=== PATIENT | female | born 1970 | race Hispanic/Latino ===

== ENCOUNTER → 2016-11-03 | Day surgery (SDC) | payer SELFPAY ==
[~2016-11-03] VITALS: Ht 160 cm; Wt 88.5 kg
--- NOTE | 2016-11-03 10:43 | Operative Report ---
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 We discussed and she was given PS informed consent she has returned sign has no further questions today regarding them. She was marked in the standing position with the use of a measuring tape. The patient photographed her markings. She was shown the areas that would be treated those that would not. She was brought to the operating room placed supine on the table. Venodyne boots are placed and general endotracheal anesthesia was established intravenous antibiotics were given. The abdomen was prepped and draped in usual sterile fashion. Tumescent fluid was placed in the premarked areas. Abdominoplasty was then started opening the incision down to the abdominal wall fascia after freeing the umbilicus. Liposuction was carried out for approximately 400 mL total. Undermining was then carried up to the xiphoid centrally. 3 layer closure of nonabsorbable sutures were then placed from the xiphoid to the pubis. 3 layer closure was then carried out of the skin over 2 drains. The umbilicus was closed with 3 layers of sutures as well. This was done in a semi-Costello's position. Ends dictation
== END ==
LOC: STS 03:22
DX: Z41.1 Encounter for cosmetic surgery (principal); E88.1 Lipodystrophy, not elsewhere classified
CPT/HCPCS: 88302; J0131; J0171; J0690; J2250